=== PATIENT | male | born 2000 | race Hispanic/Latino ===

== ENCOUNTER 2019-03-21 10:17 | Outpatient (CLI) | payer OTHER ==
--- NOTE | 2019-03-21 10:26 | RAD ---
Exam:3 views right ankle HISTORY: Pain COMPARISON: None FINDINGS: No fracture. No cortical irregularity. Joint spaces are preserved. No soft tissue swelling. IMPRESSION: Unremarkable 3 views right ankle
--- NOTE | 2019-03-21 10:38 | RAD ---
XR Foot Rt 3 View STANDARD History: Pain Comparison: None. Findings: No acute fracture or malalignment. There are erosions along lateral margin fifth metatarsal head. Bipartite medial hallux sesamoid. Impression: No acute osseous abnormality.
== END 2019-03-21 10:18 | disposition home or self-care (01) ==
LOC: RAD-FRANK 10:17
PROVIDERS: ATTEND Internal Medicine
DX: S99.921A Unspecified injury of right foot, initial encounter (principal)